=== PATIENT | male | born 1995 | race Caucasian/White ===

== ENCOUNTER 2017-02-11 09:18 | Inpatient (IN) | payer BC ==
--- NOTE | 2017-02-11 10:55 | ULT ---
LEFT LOWER EXTREMITY VENOUS ULTRASOUND WITH DOPPLER: Date: 02/11/17 HISTORY: Left calf pain. Erythema. COMPARISON: None. TECHNIQUE: Tinajero scale, color flow, Doppler imaging, and spectral waveform analysis performed of the left lower e xtremity venous system. FINDINGS: There is compressibility, presence of flow, and augmentation in the common femoral vein, femoral vein , and popliteal vein. There is flow in the greater saphenous vein, profunda vein, and posterior tibia l vein. At the level of the calf, there is soft tissue swelling. IMPRESSION: No evidence of thrombus in the left lower extremity deep venous system. POS: [facility]
[2017-02-11 10:56] LABS: Mean Platelet Volume 6.8 fL (7.4-10.4); Red Blood Cell (RBC) Count 4.86 mill/uL (4.00-5.20); White Blood Cell (WBC) Count 20.9 thou/uL (4.8-10.8)
[2017-02-11 11:03] LABS: PTT 33.9 SEC (22.9-36.1); Prothrombin Time 14.4 SEC (12.0-14.7)
[2017-02-11 11:14] LABS: Anion Gap 11 mmol/L (10-20); BUN (Urea Nitrogen) 14 mg/dL (8.9-20.6); Calc. Creatinine Clearance 0 mL/min (70-130); Calcium 9.4 mg/dL (7.8-10.44); Carbon Dioxide 28 mmol/L (22-29); Chloride 104 mmol/L (98-107); Estimated GFR-MDRD Greater than 90
[2017-02-11 11:15] LABS: Band 3 % (5-11); Neutrophil 86 % (31-61); Reactive Lymphocytes 1 % (0-10)
[2017-02-11] MEDS ORDERED: Piperacillin/Tazobactam 3.375 GM in Sodium Chloride 0.9% 100 ML IVPB ONE (11:30)
[2017-02-11] MEDS ORDERED: Ondansetron ODT 4 MG TAB SL PRN (13:33)
[2017-02-11] MEDS ORDERED: Ondansetron HCl/PF 4 MG/2 ML Vial IVP PRN ×2 (13:33→13:45)
[2017-02-11] MEDS ORDERED: Acetaminophen 325 MG TAB PO PRN (13:33)
[2017-02-11] MEDS ORDERED: Ketorolac Tromethamine 30 MG/ML VIAL IVP PRN ×2 (13:36→13:45)
[2017-02-11] MEDS ORDERED: Morphine PF 1 MG/ML SYR IV PRN (13:43)
[2017-02-11] MEDS ORDERED: Ondansetron ODT 4 MG TAB PO PRN (13:45)
[2017-02-11] MEDS ORDERED: Bisacodyl 5 MG TAB PO PRN (13:45)
[2017-02-11] MEDS ORDERED: Morphine 4 MG/ML VIAL SLOW IVP PRN (13:45)
[2017-02-11] MEDS ORDERED: VANCOMYCIN IVPB PRN (14:15)
[2017-02-11] MEDS ORDERED: FLU VACC QS2017-18 36 mo. & older 0.5 ML SYRINGE IM ONE (14:45)
[2017-02-11] MEDS: Acetaminophen 325 MG TAB PO PRN ×2 (17:15→21:57)
[2017-02-11] MEDS: Piperacillin/Tazobactam 3.375 GM in Sodium Chloride 0.9% 100 ML IVPB SCH (17:16)
--- NOTE | 2017-02-11 17:19 | CON ---
DATE OF CONSULTATION: 02/11/2017 CHIEF COMPLAINT: Left leg pain. HISTORY OF PRESENT ILLNESS: Mr. Matthew is a 21-year-old male, who was admitted this afternoon for debbie lulitis of the left lower extremity. He reports that yesterday he began having increasing pain over the lateral aspect of his ankle. This became erythematous and worsened over the day. He began havin g difficulty bearing weight. Overnight, he worsen further. He presented to the Emergency Department this morning. He denies fevers or chills or other constitutional symptoms. He denies injury or any open wound or puncture wounds. He denies any drug use. He has a history of eczema affecting his lo wer ankle, but has not had cellulitis in the past. He feels improved since receiving antibiotics. H e is having less pain. He is comfortable. He is awaiting and MRI to be done. PAST MEDICAL HISTORY: The patient is positive for eczema, otherwise negative. PAST SURGICAL HISTORY: Negative. ALLERGIES: No known drug allergies. REVIEW OF SYSTEMS: Positive for left lower extremity pain as per HPI, otherwise 10-point review of s ystems is negative. PHYSICAL EXAMINATION: VITAL SIGNS: Blood pressure is 148/53, pulse is 93, respiratory rate 18, and temperature is 99.1. GENERAL: He is alert, lying supine in no apparent distress. Breathing comfortably. HEENT: Normocephalic, atraumatic. ABDOMEN: Soft, nontender, nondistended. MUSCULOSKELETAL: The patient's left lower extremity has some erythema and swelling of the ankle. He is tender to palpation along the posterior calf and region of the Achilles tendon. He is able flex and extend the ankle, foot, and toes, although dorsiflexion past neutral causes discomfort in his natalie f. There is no fluctuance to palpation. His compartments are soft. He has good knee range of motio n. There is faint erythema along the posterior thigh. LABORATORY AND X-RAY FINDINGS: Results reviewed. White blood cell count 20.9, hemoglobin is 15.9, a nd hematocrit 48. IMPRESSION: Left lower extremity cellulitis. PLAN: At this point, I think the patient is responding to his vancomycin and Zosyn treatment. He blas simon has a Staphylococcal or streptococcal cellulitis. I would like to see an MRI of the lower leg a nd ankle to rule out any deep abscess or evidence of myositis given his significant pain with ankle f lexion and extension. He should be monitored overnight. Continue intravenous antibiotics. He can b e changed to oral antibiotics and discharged once he has a clear and improving clinical response. We will continue to follow. No indication for surgery at this time.
[2017-02-11] MEDS ORDERED: Piperacillin/Tazobactam 3.375 GM in Sodium Chloride 0.9% 100 ML IVPB SCH (18:00)
[2017-02-11] MEDS: Vancomycin HCl 1.25 GM in Sodium Chloride 0.9% 250 ML 250 ML IVPB SCH (20:17)
[2017-02-11] MEDS ORDERED: Vancomycin HCl 1 GM in Premix Bag 1 BAG IVPB SCH (21:00)
--- NOTE | 2017-02-11 23:17 | HP ---
PRIMARY CARE PHYSICIAN: Out of town. CHIEF COMPLAINT: Left leg and calf pain. HISTORY OF PRESENT ILLNESS: This is a 21-year-old white male student here in [place]. He went home for the holidays for and after he returned about 2-3 days prior to presentation, he developed pain in his left calf associated with redness and slowly got worse at the last couple days, but now he is not even able to walk, associated with some chills, but no fevers and some redness of the skin. The patient does have a history of eczema on his ankles. This had resolved, but then about 6 months ago, the left ankle developed a few minor eczematous lesions on his left ankle as well which could have been site of bacterial introduction. He did not go to swimming in any lakes or the sea and he has not had any unusual contacts. PAST MEDICAL HISTORY: None. PAST SURGICAL HISTORY: None. SOCIAL HISTORY: The patient denies tobacco, alcohol, or illicit drug use. He is a student. He does exercise, regularly doing bodybuilding. ALLERGIES: No known drug allergies. MEDICATIONS: Ibuprofen as needed. REVIEW OF SYSTEMS: CONSTITUTIONAL: No fever, chills as per HPI. No headache. No weight changes. EYES: No double vision or blurred vision. ENT: No congestion, drainage or sore throat. CARDIOVASCULAR: No chest pain, palpitations or racing heart. PULMONARY: No coughing, wheezing or shortness of breath. GASTROINTESTINAL: No abdominal pain. No nausea, vomiting, diarrhea or constipation. GENITOURINARY: No dysuria or hematuria. MUSCULOSKELETAL: He does have pain in his left calf. No other joint or muscular complaints. SKIN: Rash and eczema as per HPI. No other skin rashes that he has noticed. NEUROLOGIC: No numbness, tingling or focal weakness. PHYSICAL EXAMINATION: VITAL SIGNS: Blood pressure 129/74, pulse 82, respirations 16, O2 sat 100% on room air, temperature 98.2 in the emergency room up to now until over 100.6 on the floor. GENERAL: This is a well-developed, well-nourished male who appears his stated age and development, in no acute distress. HEENT: Pupils equal, round and reactive to light. Oropharynx clear without lesions, erythema or exudate. NECK: Supple. No lymphadenopathy, no thyroid nodules or enlargement, no JVD. HEART: Regular rate and rhythm, no murmurs, rubs or gallops. LUNGS: Clear to auscultation bilaterally, no wheezes, crackles or rhonchi. ABDOMEN: Soft, nontender to palpation, normoactive bowel sounds, no hepatosplenomegaly or other masses. EXTREMITIES: The patient has some swelling and significant tenderness over his left Achilles and calf all the way up to the back of the knee. He also has a positive Homans sign. He has severe pain with any sort of compression or stretching of the calf muscles. He does have mild overlying cellulitis going mcc up his calf. That is warm and mildly erythematous. The patient has intact range of motion at the ankle, knee and all the other joints of his lower extremities and intact strength. No swelling of the joints themselves. SKIN: Cellulitis as above, also with a couple of dry patches of skin in left ankle consistent with history of eczema. NEUROLOGIC: Cranial nerves intact and equal bilaterally. No facial droop. Deep tendon reflexes and normal in all extremities. 2+ in all extremities and strength 5/5 in all extremities. LABORATORY DATA: White blood cell count elevated at 20.9 with a neutrophilic predominance of 86%, bands are 3%. Hemoglobin, hematocrit and platelets are all normal. Coagulation profile normal. Basic metabolic panel was notable only for glucose of 111. The rest is completely normal. The patient had a lower extremity Doppler ultrasound of the left lower extremity in the emergency room that showed no evidence of thrombus in the left lower extremity deep venous system, but there was some soft tissue swelling at the level of calf. No fluid pocket noticed. ASSESSMENT AND PLAN: 1. Cellulitis of left lower extremity. The patient has been started on vancomycin and Zosyn per ER doctor and orthopedic consultation, Dr. Carl in the emergency room. He does have pain out of proportion to the exam and appears the cellulitis at this time. No evidence of DVT on the ultrasound was concerning for something more significantly going on. MRI has been ordered by Dr. Carl to evaluate for any deep fluid pockets not visualized by the ultrasound. We will continue on Zosyn and vancomycin for now and look for clinical response. Blood cultures were not drawn by the emergency room so he has already received antibiotics. We will hold off on any cultures at this time. We will give p.r.n. Toradol and morphine for pain. 2. Gastrointestinal prophylaxis. The patient on Protonix daily. 3. Deep venous thrombosis prophylaxis. The patient on Lovenox subcutaneous. 4. Code status: The patient is a FULL CODE. MTDD
[2017-02-12] MEDS: Piperacillin/Tazobactam 3.375 GM in Sodium Chloride 0.9% 100 ML IVPB SCH ×3 (00:16→11:58)
[2017-02-12] MEDS ORDERED: Ibuprofen 200 MG TAB PO PRN (00:43)
[2017-02-12] MEDS ORDERED: Sodium Chloride 0.9% 500 ML IVPB SCH (00:45)
[2017-02-12] MEDS: Vancomycin HCl 1.25 GM in Sodium Chloride 0.9% 250 ML 250 ML IVPB SCH (03:37)
[2017-02-12 04:40] LABS: #Lymphocytes 1.9 thou/uL (1.20-3.40); #Monocytes 2.2 thou/uL (0.11-0.59); #Neutrophils 10.9 thou/uL (1.40-6.50); %Basophils 0.2 % (0.0-1.0); %Eosinophils 0.1 % (0.0-10.0); %Lymphocytes 12.4 % (28.0-48.0); %Monocytes 14.5 % (0.0-4.0); Hematocrit 43.3 % (42.0-52.0); Mean Platelet Volume 7.2 fL (7.4-10.4); Red Blood Cell (RBC) Count 4.37 mill/uL (4.00-5.20)
[2017-02-12 04:55] LABS: Anion Gap 9 mmol/L (10-20); BUN (Urea Nitrogen) 15 mg/dL (8.9-20.6); Calc. Creatinine Clearance 139 mL/min (70-130); Calcium 8.7 mg/dL (7.8-10.44); Carbon Dioxide 27 mmol/L (22-29); Chloride 106 mmol/L (98-107); Estimated GFR-MDRD 88
[2017-02-12] MEDS: Enoxaparin Sodium 40 MG/0.4 ML SYRINGE SC SCH (09:14)
[2017-02-12 11:27] LABS: Vancomycin, Trough 7.5 ug/mL
--- NOTE | 2017-02-12 13:30 | PDOC.PN ---
- Subjective Encounter Start Date: 02/12/17 Encounter Start Time: 11:00 Subjective: left ankle pain is better - Objective MAR Reviewed: Yes Vital Signs & Weight: Vital Signs (12 hours) Temp Pulse Resp BP Pulse Ox 02/12/17 08:00 98.3 F 76 16 98 02/12/17 07:41 98.3 F 76 16 111/63 98 02/12/17 04:00 98.4 F 76 14 117/65 96 Weight Weight 196 lb 3.382 oz Result Diagrams: 02/12/17 03:37 02/12/17 03:37 Phys Exam - Physical Examination HEENT: PERRLA, moist MMs Neck: no JVD, supple Respiratory: no wheezing, no rales Cardiovascular: RRR, no significant murmur Gastrointestinal: soft, non-tender, positive bowel sounds Musculoskeletal: pulses present cant dorsiflex or plantarflex due to pain left ankle edema and erythema is receding Neurological: non-focal, moves all 4 limbs Psychiatric: A&O x 3 Dx/Plan (1) Cellulitis of left ankle Code(s): L03.116 - CELLULITIS OF LEFT LOWER LIMB Status: Acute - Plan is on vanc and zosyn -: no h/o urethral drainage or std's per patient -: awaiting MRI to r/o tenosynovitis/ankle issues -: will consult ID * . Review of Systems - Medications/Allergies Allergies/Adverse Reactions: Allergies Allergy/AdvReac Type Severity Reaction Status Date / Time No Known Allergies Allergy Unverified 02/11/17 11:27 Medications: Current Medications Acetaminophen (Tylenol) 650 mg PO Q4H PRN PRN Reason: Headache/Fever or Pain Last Admin: 02/11/17 21:57 Dose: 650 mg Bisacodyl (Dulcolax) 10 mg PO DAILYPRN PRN PRN Reason: Constipation Enoxaparin Sodium (Lovenox) 40 mg SC 0900 [facility] Last Admin: 02/12/17 09:14 Dose: 40 mg Piperacillin Sod/Tazobactam (Sod 3.375 gm/ Sodium Chloride) 100 mls @ 200 mls/ hr IVPB Q6HR [facility] Last Admin: 02/12/17 11:58 Dose: 100 mls Vancomycin HCl 2 gm/ Sodium (Chloride) 500 mls @ 250 mls/hr IVPB 0400,1200, 2000 [facility] Last Admin: 02/12/17 12:50 Dose: 500 mls Ibuprofen (Motrin) 400 mg PO Q6H PRN PRN Reason: Fever Last Admin: 02/12/17 01:17 Dose: 400 mg Ketorolac Tromethamine (Toradol) 15 mg IVP Q6H PRN PRN Reason: Moderate Pain (4-6) Stop: 02/16/17 13:46 Last Admin: 02/11/17 14:35 Dose: 15 mg Miscellaneous Medication (Pharmacy To Dose) 1 each IVPB PRN PRN PRN Reason: Pharmacy to dose Morphine Sulfate (Morphine) 4 mg SLOW IVP Q4H PRN PRN Reason: Severe Pain (7-10) Ondansetron HCl (Zofran Odt) 4 mg PO Q6H PRN PRN Reason: Nausea/Vomiting Ondansetron HCl (Zofran) 4 mg IVP Q6H PRN PRN Reason: Nausea/Vomiting Last Admin: 02/11/17 14:37 Dose: 4 mg Pantoprazole Sodium (Protonix) 40 mg PO DAILY [facility] Last Admin: 02/12/17 09:14 Dose: 40 mg Sodium Chloride (Flush - Normal Saline) 10 ml IVF Q12HR [facility] Last Admin: 02/12/17 09:14 Dose: Not Given Sodium Chloride (Flush - Normal Saline) 10 ml IVF PRN PRN PRN Reason: Saline Flush
[2017-02-12 15:22] VITALS: BMI 25.2
[2017-02-12] MEDS: cefTRIAXone\\ROCEPHIN 2 GM in Sodium Chloride 0.9% 100 ML IVPB SCH (17:00)
[2017-02-12] MEDS: HYDROcodone/Acetaminophen 5/325 mg Tablet PO PRN (18:20)
[2017-02-12] MEDS: Doxycycline 100 MG CAP PO SCH (21:00)
[2017-02-13 05:28] LABS: #Eosinphils 0.1 thou/uL (0.0-0.7); #Lymphocytes 1.9 thou/uL (1.20-3.40); #Monocytes 1.4 thou/uL (0.11-0.59); #Neutrophils 7.4 thou/uL (1.40-6.50); %Basophils 0.1 % (0.0-1.0); %Eosinophils 0.6 % (0.0-10.0); %Lymphocytes 17.4 % (28.0-48.0); %Monocytes 13.2 % (0.0-4.0); Hematocrit 43.1 % (42.0-52.0); Mean Platelet Volume 7.4 fL (7.4-10.4); Red Blood Cell (RBC) Count 4.35 mill/uL (4.00-5.20); White Blood Cell (WBC) Count 10.8 thou/uL (4.8-10.8)
[2017-02-13 06:10] LABS: ALT (SGPT) 17 U/L (8-55); AST (SGOT) 11 U/L (5-34); Alkaline Phosphatase 63 U/L (Less than 750); Anion Gap 9 mmol/L (10-20); BUN (Urea Nitrogen) 11 mg/dL (8.9-20.6); Bilirubin, Total 0.5 mg/dL (0.2-1.2); Calc. Creatinine Clearance 177 mL/min (70-130); Calcium 8.5 mg/dL (7.8-10.44); Carbon Dioxide 26 mmol/L (22-29); Chloride 107 mmol/L (98-107); Estimated GFR-MDRD Greater than 90; Globulin 2.4 g/dL (2.4-3.5); Protein, Total 5.7 g/dL (6.0-8.3)
[2017-02-13] MEDS: Doxycycline 100 MG CAP PO SCH (08:04)
[2017-02-13] MEDS: Enoxaparin Sodium 40 MG/0.4 ML SYRINGE SC SCH ×2 (08:05→08:08)
[2017-02-13] MEDS: HYDROcodone/Acetaminophen 5/325 mg Tablet PO PRN ×2 (08:48→22:10)
[2017-02-13 11:28] LABS: Vancomycin, Trough 16.2 ug/mL
--- NOTE | 2017-02-13 13:23 | CON ---
DATE OF CONSULTATION: 02/13/2017 REASON FOR CONSULTATION: Cellulitis, left leg. HISTORY OF PRESENT ILLNESS: A 21-year-old otherwise healthy except for eczema, who has had a few day s of inflammatory process of left leg which began suddenly with chills and pain in the left leg and e rythema in the medial and lateral aspect associated with inability to bear weight because of pain. Aruna gilmore was admitted and has been started on broad spectrum coverage, is feeling some improvement thus far, still quite a bit of pain, but has not had fever since the first day of after admission. No he adaches, visual symptoms, sore throat, odynophagia, dysphagia, no back pain, no cough or sputum produ ction or chest pain, no abdominal pain or diarrhea. No genitourinary symptoms. No joint symptoms. No neurological symptoms. PAST MEDICAL HISTORY: Otherwise, not remarkable except for eczema. SOCIAL HISTORY: He is a student. Never a smoker. He is not sexually active. ALLERGIES: None. MEDICATIONS: Does not take any regular medications. PHYSICAL EXAMINATION: VITAL SIGNS: T-max 101. He has been afebrile for the past 2 days. SKIN: Shows the area of erythema in a circumferential distribution in the left lower extremity with some petechia, no lymphadenopathy. HEENT: Normal. No back pain. LUNGS: Clear. HEART: S1, S2, regular rate. ABDOMEN: Soft. Not distended. No bladder distention. : No genital abnormalities. EXTREMITIES: Pulses are excellent in lower extremities, moves extremities with limitations imposed b y the inflammatory process. He is able to move his left ankle without any pain induced. NEUROLOGIC: Nonfocal. Cognitive function is normal. LABORATORY: White cell count is down from 20,000-10,000, hemoglobin 14, platelets 141 and 68% neutro phils. INR 1.1 and current chemistries not remarkable except for protein of 5.7, albumin 3.3. Vanco mycin trough 7.5. MICROBIOLOGY: No report to see yet. Vascular ultrasound normal. ASSESSMENT: Cellulitis, left leg. DISCUSSION: The most likely scenario is beta hemolytic streptococcal cellulitis either group A, B, C , or G. Recommend switching to Rocephin alone, continuation of therapy, elevation of extremity. The re is no clinical evidence to suggest a deeper inflammatory process at this point in time. After com pletion of therapy and improvement, then he can be transitioned to oral Keflex for another 2 weeks an d then convert to Pen-Vee K and supression with 250 mg twice daily. I would give him a few months un til his eczema improves. He would be advised to consult with a his primary care physician for manage ment of his eczema either on a constant or a p.r.n. basis to prevent recurrence. There is no evidenc e of venous insufficiency.
[2017-02-13] MEDS: cefTRIAXone\\ROCEPHIN 2 GM in Sodium Chloride 0.9% 100 ML IVPB SCH (13:51)
--- NOTE | 2017-02-13 15:19 | MRI ---
MRI LEFT LOWER EXTREMITY WITH AND WITHOUT CONTRAST: HISTORY: Left lower extremity cellulitis. Redness and swelling. TECHNIQUE: Multiplanar, multisequence MRI of the left lower extremity with and without contrast. FINDINGS: There is extensive swelling, edema, and enhancement around the lesser saphenous vein. There is also enhancement and edema within the medial gastrocnemius. There is also mild enhancement and thickening of the peripheral superficial deep fascia. Superficial soft tissue edema is present. No drainable fluid collection. IMPRESSION: Thrombophlebitis of the lesser saphenous vein with mild myositis of the medial head gastrocnemius. B ones are intact. No deep fasciitis. Ultrasound of the lesser saphenous vein may be beneficial in th is patient. POS: [facility]
--- NOTE | 2017-02-13 15:28 | PDOC.PN ---
- Subjective Encounter Start Date: 02/13/17 Encounter Start Time: 12:25 Subjective: still has pain over post calf area -: can plantar flex but not dorsiflex of his ankle - Objective MAR Reviewed: Yes Vital Signs & Weight: Vital Signs (12 hours) Temp Pulse Resp BP Pulse Ox 02/13/17 08:00 97.5 F L 87 18 109/64 98 02/13/17 06:39 98.5 F 83 16 124/65 97 Weight Admit Weight 196 lb 3.376 oz Weight 196 lb 3.376 oz I&O: 02/12/17 02/13/17 02/14/17 06:59 06:59 06:59 Intake Total 1780 Balance 1780 Result Diagrams: 02/13/17 05:03 02/13/17 05:03 Phys Exam - Physical Examination HEENT: PERRLA, moist MMs Neck: no JVD, supple Respiratory: no wheezing, no rales Cardiovascular: RRR, no significant murmur Gastrointestinal: soft, non-tender, positive bowel sounds Musculoskeletal: pulses present left post calf area is tender, ankle edema is resolving Neurological: non-focal, moves all 4 limbs Psychiatric: A&O x 3 Dx/Plan (1) Cellulitis of left ankle Code(s): L03.116 - CELLULITIS OF LEFT LOWER LIMB Status: Acute (2) Thrombophlebitis leg superficial Code(s): I80.00 - PHLBTS AND THOMBOPHLB OF SUPERFIC VESSELS OF UNSP LOW EXTRM Status: Acute Qualifiers: Laterality: left Qualified Code(s): I80.02 - Phlebitis and thrombophlebitis of superficial vessels of left lower extremity - Plan is on ceftriaxone -: motrin prn -: wbc is back to normal -: mri does not show deeper infection -: to amb in hallway * . Review of Systems - Medications/Allergies Allergies/Adverse Reactions: Allergies Allergy/AdvReac Type Severity Reaction Status Date / Time No Known Allergies Allergy Unverified 02/11/17 11:27 Medications: Current Medications Acetaminophen (Tylenol) 650 mg PO Q4H PRN PRN Reason: Headache/Fever or Pain Last Admin: 02/11/17 21:57 Dose: 650 mg Hydrocodone Bitart/Acetaminophen ([place] 5/325) 1 tab PO Q6H PRN PRN Reason: Pain Last Admin: 02/13/17 08:48 Dose: 1 tab Bisacodyl (Dulcolax) 10 mg PO DAILYPRN PRN PRN Reason: Constipation Enoxaparin Sodium (Lovenox) 40 mg SC 0900 [facility] Last Admin: 02/13/17 08:08 Dose: 40 mg Ceftriaxone Sodium 2 gm/ (Sodium Chloride) 100 mls @ 200 mls/hr IVPB Q24HR [facility] Last Admin: 02/13/17 13:51 Dose: 100 mls Ibuprofen (Motrin) 400 mg PO Q6H PRN PRN Reason: Fever Last Admin: 02/12/17 01:17 Dose: 400 mg Ketorolac Tromethamine (Toradol) 15 mg IVP Q6H PRN PRN Reason: Moderate Pain (4-6) Stop: 02/16/17 13:46 Last Admin: 02/11/17 14:35 Dose: 15 mg Morphine Sulfate (Morphine) 4 mg SLOW IVP Q4H PRN PRN Reason: Severe Pain (7-10) Ondansetron HCl (Zofran Odt) 4 mg PO Q6H PRN PRN Reason: Nausea/Vomiting Ondansetron HCl (Zofran) 4 mg IVP Q6H PRN PRN Reason: Nausea/Vomiting Last Admin: 02/11/17 14:37 Dose: 4 mg Pantoprazole Sodium (Protonix) 40 mg PO DAILY [facility] Last Admin: 02/13/17 08:04 Dose: 40 mg Sodium Chloride (Flush - Normal Saline) 10 ml IVF Q12HR [facility] Last Admin: 02/13/17 08:05 Dose: Not Given Sodium Chloride (Flush - Normal Saline) 10 ml IVF PRN PRN PRN Reason: Saline Flush
[2017-02-14 04:28] LABS: #Eosinphils 0.2 thou/uL (0.0-0.7); #Lymphocytes 2.1 thou/uL (1.20-3.40); #Monocytes 0.8 thou/uL (0.11-0.59); #Neutrophils 4.7 thou/uL (1.40-6.50); %Basophils 0.4 % (0.0-1.0); %Lymphocytes 27.1 % (28.0-48.0); %Monocytes 10.5 % (0.0-4.0); Hematocrit 42.3 % (42.0-52.0); Mean Platelet Volume 7.3 fL (7.4-10.4); Red Blood Cell (RBC) Count 4.26 mill/uL (4.00-5.20); White Blood Cell (WBC) Count 7.9 thou/uL (4.8-10.8)
[2017-02-14 07:28] VITALS: BP 100/61; TEMP 98.2
[2017-02-14] MEDS: Enoxaparin Sodium 40 MG/0.4 ML SYRINGE SC SCH (08:38)
--- NOTE | 2017-02-14 14:11 | PDOC.PN ---
- Subjective Encounter Start Date: 02/14/17 Encounter Start Time: 07:15 Subjective: feels better -: is not weight bearing on his left extremity - Objective MAR Reviewed: Yes Vital Signs & Weight: Vital Signs (12 hours) Temp Pulse Resp BP Pulse Ox 02/14/17 08:00 98.2 F 80 18 98 02/14/17 07:28 98.2 F 80 18 100/61 98 Weight Admit Weight 196 lb 3.376 oz Weight 196 lb 3.376 oz I&O: 02/13/17 02/14/17 02/15/17 06:59 06:59 06:59 Intake Total 1780 970 Output Total 2950 Balance 1779 -1979 Result Diagrams: 02/14/17 03:58 02/13/17 05:03 Phys Exam - Physical Examination HEENT: PERRLA, moist MMs Neck: no JVD, supple Respiratory: no wheezing, no rales Cardiovascular: RRR, no significant murmur Gastrointestinal: soft, non-tender, positive bowel sounds Musculoskeletal: pulses present left leg erythema and edema is receding Neurological: non-focal, moves all 4 limbs Psychiatric: A&O x 3 Dx/Plan (1) Cellulitis of left ankle Code(s): L03.116 - CELLULITIS OF LEFT LOWER LIMB Status: Acute (2) Thrombophlebitis leg superficial Code(s): I80.00 - PHLBTS AND THOMBOPHLB OF SUPERFIC VESSELS OF UNSP LOW EXTRM Status: Acute Qualifiers: Laterality: left Qualified Code(s): I80.02 - Phlebitis and thrombophlebitis of superficial vessels of left lower extremity - Plan keflex for 2 weeks then pen vk until his eczema resolves -: 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 Review of Systems - Medications/Allergies Allergies/Adverse Reactions: Allergies Allergy/AdvReac Type Severity Reaction Status Date / Time No Known Allergies Allergy Unverified 02/11/17 11:27
--- NOTE | 2017-02-14 20:54 | DIS ---
DATE OF ADMISSION: 02/11/2017 DATE OF DISCHARGE: 02/14/2017 DISCHARGE DISPOSITION: To home. PRIMARY DISCHARGE DIAGNOSES: Left ankle and leg cellulitis with superficial thrombophlebitis, sepsis . SECONDARY DISCHARGE DIAGNOSES: Left ankle and leg cellulitis with probable liver cirrhosis with supe rficial thrombophlebitis sepsis. PROCEDURES DONE DURING HOSPITALIZATION: The patient has had MRI of the left lower extremity done, wh ich showed thrombophlebitis of lesser saphenous vein with mild myositis of the medial head gastrocnem ius. Bones are intact with no fasciitis, no drainable fluid collections were seen in the superficial skin edema. Ultrasound of left lower extremity done showed no evidence of thrombus. Had a white co unt of 20 on the day of admission with discharge numbers of 7.9. INPATIENT CONSULTS: Dr. Aguilar for Infectious Disease, Dr. Carl for Orthopedic Surgery. DISCHARGE PLAN: Patient to follow up with Dr. Aguilar in 1 week and he also needs to see a dermatologi st for his eczema in the same lower extremity. DISCHARGE MEDICATIONS: Keflex 500 mg p.o. three times daily for 2 weeks, then penicillin VK thereaft er twice daily until his eczema is resolved in the leg for suppression of cellulitis, Motrin 400 mg p .o. q.6 hourly p.r.n., tramadol 50 mg 4 times daily p.r.n. ALLERGIES: No known drug allergies. BRIEF COURSE DURING HOSPITALIZATION: Patient initially got admitted on the with complaints of l eft leg and calf pain. He was also found to have had an area of eczema in the ankle on the posterior aspect. Patient was diagnosed with cellulitis of left leg and ankle area with erythema and edema. In view of the location and his age, the orthopedic surgical consultation was requested with Dr. Juan Carlos ramos. He had a white count of 20 on the day of admission and was placed on broad-spectrum antibioti cs to cover common bacteria for cellulitis. He has had an MRI done, which showed no deep pockets of infection. He also had a consultation with Dr. Aguilar. Per Dr. Aguilar' advice, he will be placed on K eflex for a total of 2 weeks and then penicillin VK thereafter until his eczema resolves. Patient ne eds to see a scheduling manager to get his eczema under control, which likely is the portal of entry for t he current cellulitis. He is hemodynamically stable and will be shortly discharged home. I have cou nseled him to weight bear and ambulate on the left lower extremity. I have also discussed the curren t plan with his mom over the phone. Please [id number].
== END 2017-02-14 12:35 | disposition home or self-care (01) | DRG 872 ==
LOC: ERS 09:18 → T4-B 13:47
PROVIDERS: ADMIT Emergency Medicine; ATTEND Emergency Medicine
DX: A41.9 Sepsis, unspecified organism (principal); L03.116 Cellulitis of left lower limb; K74.60 Unspecified cirrhosis of liver; I80.02 Phlebitis and thrombophlebitis of superficial vessels of left lower extremity
CPT/HCPCS: 36415; 80048; 80053; 80202; 85025; 85610; 85730; 93005; 93010; 96365; 96367; A4216; J0696; J1650; J1885; J2270; J2405; J2543; J3370; J7050